=== PATIENT | male | born 1930 | race African-American/Black ===

== ENCOUNTER 2016-10-23 21:23 | Inpatient (IN) | payer OTHER ==
[~2016-10-23] VITALS: Ht 175.3 cm; Wt 62.8 kg
--- NOTE | ~2016-10-23 | EKG ---
[address] [place] [address] ELECTROCARDIOGRAM REPORT Name: KIMBERLYN GUILLEN Room #: 202-P ADM IN M.R.#: [id number] Admission: 10/23/16 Attend Phys: Stuart Kelley MD Discharge: Date of : 34 Report #: [id number] THIS REPORT FOR: //name// [facility] ED Test Date: 2016-10-23 Test Time: 22:35:36 Pat Name: KIMBERLYN GUILLEN Department: Room: 202 Gender: M Early Childhood Worker: BRANDI : 1930 Requested By: Sulaiman Balderas Order Number: [id number] MD: Petros Guerrero Measurements Intervals [place] Rate: 59 P: 72 ND: 234 QRS: -55 QRSD: 168 T: 214 QT: 457 QTc: 453 Interpretive Statements Sinus rhythm Prolonged ND interval Left bundle branch block Compared to ECG 10/22/2008 20:20:59 No significant change was found Electronically Signed On 10-24-2016 8:55:45 CDT by Petros Guerrero [email or web address] <ELECTRONICALLY SIGNED> By: Petros Guerrero MD, [facility] 10/24/16 0855 34 34 Petros Guerrero MD, [facility] /EPI
--- NOTE | ~2016-10-23 | 2DMMODE ---
[facility] [address] [place] [address] 2 D/M-MODE ECHOCARDIOGRAM Name: NEELAM GUILLENNDELL Room #: 202-P [facility] IN .R.#: [id number] Admission: 10/23/16 Attend Phys: Stuart Kelley, Discharge: Date of : 32 Date of Service: 10/24/16 1110 Report #: [id number] THIS REPORT FOR: //name// APPROVED REPORT Study performed: 10/24/2016 09:58:56 EXAM: Comprehensive 2D, Doppler, and color-flow Echocardiogram Patient Location: Bedside Room #: 202 Other Information Study Quality: Good Indications CVA/TIA CAD Hypertension/HDD Echo Enhancing Agent Indication: Rule out Shunt Agent(s) / Amount(s) Used: Agitated Saline 7 cc 2D Dimensions RVDd: 40.64 mm LVEF(%): 54.11 (>50%) IVSd: 10.64 (7-11mm) LVOT Diam: 21.94 (18-24mm) LVDd: 42.78 mm PWd: 11.23 (7-11mm) Ascending Ao: 34.14 (22-36mm) LVDs: 30.92 (25-40mm) Aortic Root: 30.39 mm IVC: 18.00 mm Molina's LVEF: 54.11 % Volumes Left Atrial Volume (Systole) Single Plane 4CH: 26.14 mL Single Plane 2CH: 40.92 mL LA ESV Index: 25.00 mL/m2 Aortic Valve AoV Peak Balta.: 1.17 m/s AO Peak Gr.: 5.50 mmHg LVOT Max P.02 mmHg LVOT Max V: 0.87 m/s SULAIMAN Vmax: 2.80 cm2 Mitral Valve [facility] [address] [address] 2 D/M-MODE ECHOCARDIOGRAM Name: MINDYKIMBERLYN Room #: 202-P [facility] IN M.R.#: [id number] Admission: 10/23/16 Attend Phys: Stuart Kelley, Discharge: Date of : 34 Date of Service: 10/24/16 1110 Report #: [id number] E/A Ratio: 0.7 MV Decel. Time: 189.86 ms MV E Max Balta.: 0.71 m/s MV A Balta.: 0.97 m/s MV PHT: 55.06 ms IVRT: 203.00 ms Pulmonary Valve PV Peak Balta.: 0.64 m/s PV Peak Gr.: 1.66 mmHg Pulmonary Vein P Vein S: 0.45 m/s P Vein A: 0.22 m/s P Vein D: 0.26 m/s P Vein A Dur.: 101.5 msec P Vein S/D Ratio: 1.73 Tricuspid Valve TR Peak Balta.: 2.11 m/s RAP Estimate: 10.00 mmHg TR Peak Gr.: 17.76 mmHg PA Pressure: 28.00 mmHg Left Ventricle The left ventricle is normal size. There is normal LV segmental wall motion. There is normal left ventricular wall thickness. The left ventricular systolic function is normal. LVEF is 55-60%. Grade I - abnormal relaxation pattern. Right Ventricle The right ventricle is normal size. The right ventricular systolic function is normal. Atria The left atrium size is normal. Tiny amount of shunting on bubble injection consistent with PFO The right atrium size is normal. Aortic Valve Aortic valve is calcified. No aortic regurgitation is present. There is no aortic valvular stenosis. Mitral Valve The mitral valve sclerosis No mitral regurgitation. No evidence of mitral valve stenosis. Tricuspid Valve The tricuspid valve is normal in structure. There is trace tricuspid regurgitation. The right atrial pressure is estimated at 10 mmHg. [facility] [address] [place] [address] 2 D/M-MODE ECHOCARDIOGRAM Name: KIMBERLYN GUILLEN Room #: 202-P ADM IN M.R.#: [id number] Admission: 10/23/16 Attend Phys: Stuart Kelley, Discharge: Date of : 34 Date of Service: 10/24/16 1110 Report #: [id number] There is no pulmonary hypertension. Pulmonic Valve The pulmonary valve is normal in structure. There is no pulmonic valvular regurgitation. Great Vessels The aortic root is normal in size. IVC is normal in size and collapses <50% with inspiration. Pericardium There is no pericardial effusion. <Conclusion> The left ventricular systolic function is normal. There is normal LV segmental wall motion. LVEF is 55-60%. Grade I diastolic dysfunction Aortic valve is calcified. There is no aortic valvular stenosis or insufficiency The mitral valve sclerosis No mitral regurgitation. Pulmonary artery pressure of 25mmHg. Tiny amount of right to left shunting on bubble injection consistent with patent foramen ovale. There is no pericardial effusion. <ELECTRONICALLY SIGNED> By: Petros Guerrero MD, FACC 10/24/16 1110 1110 1110 Petros Guerrero MD, FACC /INF
--- NOTE | ~2016-10-23 | H ---
[facility] [place] [address] HISTORY AND PHYSICAL Name: KIMBERLYN GUILLEN Room #: 202-P ADM IN M.R.#: [id number] Admission: 10/23/16 Attend Phys: Stuart Kelley MD Discharge: Date of : 32 Report #: [id number] THIS REPORT FOR: //name// CC: Stuart Kelley DATE OF SERVICE: 10/24/2016 CHIEF COMPLAINT: Right sided weakness. HISTORY OF PRESENT ILLNESS: The patient is an 85-year-old -[place]in[place] male, well known to me, who was brought to the Emergency Department by the daughter, who reported that he complained of some symptoms of right sided weakness. The patient states he had had a problem in the past that resolved. He states he contacted them and said he could not use his right arm very well. He does have dementia as well. PAST MEDICAL HISTORY: Significant for: 1. Dementia. 2. Hypertension. 3. Coronary artery disease. 4. Reflux. 5. BPH. MEDICATIONS: Include just lisinopril 20 mg a day and Aricept 10 mg a day. ALLERGIES: No known drug allergies. SOCIAL HISTORY: Nonsmoker and nondrinker. No recreational drugs. He lives independently in an apartment. REVIEW OF SYSTEMS: CONSTITUTIONAL: He denies fevers or chills. HEENT: No headaches or visual changes. CHEST: He denies chest pain tightness in the chest, shortness of breath, cough or sputum production. GASTROINTESTINAL: No nausea, vomiting, diarrhea, or constipation. GENITOURINARY: No burning or frequency. EXTREMITIES: The right sided weakness as above. No swelling or stiffness. SKIN: No rashes or wounds. NEUROLOGIC: Per above. PHYSICAL EXAMINATION: VITAL SIGNS: Blood pressure was 157/93, his pulse was 65, respiratory rate 17. He is afebrile. GENERAL: The patient is awake and alert, in no acute distress, at the time of my evaluation. He is slightly confused this morning, but is in no distress. [address] [address] HISTORY AND PHYSICAL Name: KIMBERLYN GUILLEN Room #: 202-[facility] IN M.R.#: [id number] Admission: 10/23/16 Attend Phys: Stuart Kelley MD Discharge: Date of : 32 Report #: [id number] HEENT: His mucous membranes are moist. NECK: Supple, without adenopathy, thyromegaly, or bruits. CHEST: Clear to auscultation bilaterally. CARDIOVASCULAR: Irregular rhythm without murmur. ABDOMEN: Soft. No masses. No hepatosplenomegaly. Bowel sounds are active. EXTREMITIES: Show no clubbing, cyanosis, or edema. NEUROLOGICAL: He has poor memory. His motor is grossly equal bilaterally in upper and lower extremities. His sensory is equal bilaterally. His cranial nerves are grossly intact. DIAGNOSTIC DATA: EKG showed sinus rhythm at the rate of 59. No acute ST segment changes. LABORATORY DATA: Sodium 141, potassium 3.6, chloride 106, bicarbonate 27, BUN 25, creatinine 1.3, glucose 90, magnesium 2.1, AST 49, ALT 40, CPK is 1076, MB is 8.1. Troponin is less than 0.04. C-reactive protein is 2. BNP is 439. TSH 2.23, INR 1.1. WBC 3.5, hemoglobin 14.0, hematocrit 48.9, platelet count 144, segs 57, lymphs 28. Chest x-ray shows no acute process. CT head shows atrophy, but no acute process. There are some changes in the anterior left thalamic area with some possible acute infarct area. It is hard to determine on the CT. ASSESSMENT AND PLAN: 1. Acute transient ischemic attack with of symptoms. We will start aspirin. We will get MRI head with and without contrast. Echocardiogram and carotid Dopplers. Consult PT and OT. 2. Hypertension. Currently, stable. Continue home meds. 3. Dementia. Resume Aricept. 4. Elevated CPK likely on the basis of rhabdomyolysis. He may have been on the ground for some time due to the weakness, it is not clear. We will give IV fluids, monitor the CPK, and monitor his creatinine. He will likely need placement in a long term facility for debility from his weakness. By: [id number] Stuart Kelley MD /nt
--- NOTE | ~2016-10-23 | HC ---
[facility] [place] [address] CONSULTATION Name: KIMBERLYN GUILLEN Room #: 202-P [facility] IN M.R.#: [id number] Admission: 10/23/16 Attend Phys: Stuart Kelley MD Discharge: 10/25/16 Date of : 32 Report #: [id number] THIS REPORT FOR: //name// CC: Stuart Kelley HISTORY OF PRESENT ILLNESS: The patient is an 85-year-old -[place] male with a history of dementia who nevertheless has been living in his own apartment with his daughter closely involved. He had difficulty with inability to walk and was admitted with right-sided weakness. MRI confirmed left basal ganglia infarcts. He also had an elevated CPK secondary to rhabdomyolysis, likely due to apparently lying on the floor for a while. Carotid Dopplers were negative for any significant stenosis. We have been consulted regarding rehab therapy issues. PAST MEDICAL HISTORY: Includes the noted dementia, history of hypertension, coronary artery disease, reflux, BPH. MEDICATIONS: Please see the full medication listing. ALLERGIES: No known drug allergies. SOCIAL HISTORY: Lives in his own independent apartment by himself. He has premorbidly been ambulatory without gait aids. Daughter helps with cooking, cleaning and laundry. He actually drives to the grocery store and his daughter usually will meet him there. The staff at the grocery store also will help him as far as his purchases. REVIEW OF SYSTEMS: Did not offer any current complaints of chest pain, shortness of breath, abdominal discomfort. PHYSICAL EXAMINATION: GENERAL: He is a pleasant 85-year-old -[place] male in no obvious distress. VITAL SIGNS: Last recorded temperature 36.2, pulse 59, respirations 16, blood pressure 173/88. NEUROLOGIC: The patient is alert, pleasant, slender -[place] male in no obvious distress. He can follow basic 1 step commands without difficulty. He is cooperative and pleasant. Facies appeared to be symmetric. EOMs appeared to be intact. EXTREMITIES: He does have some weakness of that right upper and right lower extremity a grade 3+/5. DTRs are trace to 1. Left upper extremity and left lower extremity are more of a grade 4. Tone appeared to be intact, a grade 1 without clonus. Functionally, he is min assist with sit to stand. Gait was 3 feet mod assist. Lower extremity dressing was min assist with decreased balance. The patient indicates to therapist that he does not want to use a cane or a walker. [address] [address] CONSULTATION Name: KIMBERLYN GUILLEN Room #: 202-P DIS IN M.R.#: [id number] Admission: 10/23/16 Attend Phys: Stuart Kelley MD Discharge: 10/25/16 Date of : 32 Report #: [id number] ASSESSMENT: An 85-year-old -[place] male with the following problem lists: 1. Left basal ganglia infarcts. 2. Right-sided weakness. 3. Functional mobility and ADL deficits. 4. Premorbid dementia, nevertheless living in the community with close involvement with his daughter. 5. History of rhabdomyolysis. 6. Hypertension. 7. Coronary artery disease. PLAN: The patient is a candidate for an acute in-hospital inpatient rehabilitation stay. From a preadmission screening perspective: 1. Prior level of function is well delineated above. 2. Expect level of improvement would be for the patient to improve as far as his gait, mobility and ADLs, so that he can achieve his prior functional level to be able to return back to the home setting with likely initial increased assistance by his daughter. Would anticipate length of stay of probably at least 10 days to 2 weeks. 3. Evaluation of the patient's risk for clinical complications. He does have multiple medical comorbidities as noted above. 4. Condition that cause the need for rehabilitation would be the acute strokes. 5. Treatments needed would include PT and OT and would have speech therapy involved as well, 1 hour per day each five days a week throughout the duration of the acute inpatient rehabilitation stay. If he is approaching his prior cognitive level, we may be able to decrease the speech and increase the PT and OT. 6. Anticipated discharge destination is back to the home setting above. 7. Anticipated post-discharge treatments would include likely some home healthcare therapies. By: [id number] Vicente Poe MD /nt
[2016-10-23 21:24] VITALS: BP 157/93
[2016-10-23 22:28] LABS: BASOPHILS 1.4 % (0.0-2.0); EOSINOPHILS 2.9 % (0.0-3.0); HEMATOCRIT 40.9 % (42.0-52.0); LYMPHOCYTES 28.8 % (24.0-44.0); MCH 29.7 pg (26.0-34.0); MCHC 34.2 g/dL (28.0-37.0); MCV 86.8 fL (80.0-100.0); PLATELET COUNT 144 thou/uL (150-400); POLYS 57.9 % (36.0-66.0); RBC 4.71 mil/uL (4.50-6.00); RDW 13.6 % (10.5-14.5); WBC 3.5 thou/uL (4.0-11.0)
[2016-10-23 22:36] LABS: MANUAL DIFF NO
[2016-10-23] MEDS ORDERED: ARICEPT 5 MG TAB5 MG PO (22:41)
[2016-10-23] MEDS ORDERED: PRINIVIL20 MG PO (22:41)
[2016-10-23 22:42] LABS: ANION GAP 8 mmol/L (7-16); BUN 25 mg/dL (7-18); CALCIUM 9.2 mg/dL (8.5-10.1); CHLORIDE 106 mmol/L (98-107); CO2 27 mmol/L (21-32); CREATININE 1.3 mg/dL (0.7-1.3); GLUCOSE 90 mg/dL (74-106); POTASSIUM 3.6 mmol/L (3.5-5.1); SODIUM 141 mmol/L (136-145)
[2016-10-23 22:46] LABS: APTT 25.9 Seconds (24.5-32.8); INR 1.1; PROTIME 11.4 Seconds (9.3-11.4)
[2016-10-23 23:14] LABS: ALBUMIN 4.1 g/dL (3.4-5.0); ALKALINE PHOSPHATASE 71 U/L (46-116); CK-MB MASS 8.1 ng/mL (<0.5-3.6); MAGNESIUM 2.1 mg/dL (1.8-2.4); NT-PRO BRAIN NAT PEPTIDE 439 pg/mL (<300); SGOT 49 U/L (15-37); SGPT 40 U/L (30-65); TOTAL BILIRUBIN 0.8 mg/dL (<0.1-1.0); TOTAL PROTEIN 7.8 g/dL (6.4-8.2); TROPONIN-I < 0.04 ng/mL (<0.04-0.07)
[2016-10-24 03:20] VITALS: BP 130/85
[2016-10-24 05:05] VITALS: BP 138/88
[2016-10-24 08:25] VITALS: BP 169/83
[2016-10-24 11:39] LABS: CHOLESTEROL 181 mg/dL (<200); HDL CHOLESTEROL 73 mg/dL (>40); LDL CHOLESTEROL 100 mg/dL (<100); TC:HDL 2.5 Ratio (Not establshd); TRIGLYCERIDE 44 mg/dL (<150); VLDL 9 mg/dL (<40)
[2016-10-24 11:40] VITALS: BP 183/95
[2016-10-24 16:20] VITALS: BP 181/100
[2016-10-24 19:17] VITALS: BP 144/79
[2016-10-25 03:36] LABS: CALCIUM 9.2 mg/dL (8.5-10.1); CREATININE 1.2 mg/dL (0.7-1.3)
[2016-10-25 04:40] VITALS: BP 159/99
[2016-10-25 07:23] VITALS: BP 152/89
[2016-10-25 11:26] VITALS: BP 173/88
[2016-10-25] MEDS ORDERED: ASPIRIN EC325 M1 PO (15:16)
[2016-10-25] MEDS ORDERED: ATORVASTATIN CA10 MG PO (15:16)
[2016-10-25] MEDS ORDERED: ACETAMINOPHEN325 M1 PO (15:17)
== END 2016-10-25 15:48 | DRG 65 ==
LOC: ER 21:23 → 2N 23:33 → EROBS 23:33 → 2N 10-24 03:23
PROVIDERS: Emergency Medicine; Family Medicine
DX: I63.9 Cerebral infarction, unspecified (principal); M62.82 Rhabdomyolysis; E44.0 Moderate protein-calorie malnutrition; I25.10 Atherosclerotic heart disease of native coronary artery without angina pectoris; K21.9 Gastro-esophageal reflux disease without esophagitis; F03.90 Unspecified dementia, unspecified severity, without behavioral disturbance, psychotic disturbance, mood disturbance, and anxiety; N40.0 Benign prostatic hyperplasia without lower urinary tract symptoms; Z68.20 Body mass index [BMI] 20.0-20.9, adult; I12.9 Hypertensive chronic kidney disease with stage 1 through stage 4 chronic kidney disease, or unspecified chronic kidney disease; N18.9 Chronic kidney disease, unspecified
CPT/HCPCS: 10081

== ENCOUNTER 2016-10-25 13:23 | Inpatient (IN) | payer OTHER ==
[~2016-10-25] VITALS: Ht 180.3 cm; Wt 55.7 kg
--- NOTE | ~2016-10-25 | H ---
[facility] [place] [address] HISTORY AND PHYSICAL Name: KIMBERLYN GUILLEN Room #: 513-P ADM IN M.R.#: [id number] Admission: 10/25/16 Attend Phys: Vicente Poe MD Discharge: Date of : 32 Report #: [id number] THIS REPORT FOR: //name// CC: Vicente Kelley DATE OF SERVICE: 10/25/2016 HISTORY OF PRESENT ILLNESS: The patient is an 85-year-old male who has a history of dementia, who nevertheless has been living in his own apartment with his daughter closely involved. He has actually been doing some limited driving and his daughter will typically meet him at the grocery store. He has been premorbidly independent with ambulation without gait aids. He had the onset of difficulty with inability to walk and was admitted to [facility] with right-sided weakness. MRI confirmed left basal ganglia infarcts. He also had an elevated CPK secondary to rhabdomyolysis likely due to apparently lying on the floor for a while. Carotid Dopplers were negative for any significant stenosis. The patient was felt to be ready and has been admitted for acute in-hospital inpatient rehabilitation. PAST MEDICAL HISTORY: Includes the noted dementia, history of hypertension, coronary artery disease, reflux, BPH. MEDICATIONS: Please see the full medication listing. ALLERGIES: No known drug allergies. SOCIAL HISTORY: Lives in his own independent apartment by himself. He has premorbidly been ambulatory without gait aids. Daughter helps with cooking, cleaning and laundry. As noted above, he actually drives to the grocery store and his daughter usually meets him or the staff at the grocery store have helped him as far as his purchases. REVIEW OF SYSTEMS: No current complaints of chest pain, shortness of breath, abdominal discomfort. PHYSICAL EXAMINATION: GENERAL: An 85-year-old male in no obvious distress. He is right handed. VITAL SIGNS: His temperature is 97.3, pulse 61, respirations 20, blood pressure 192/76. HEENT: Appeared to be benign. Facies are symmetric. CHEST: Sounded clear to auscultation. CARDIAC: Regular rate and rhythm. ABDOMEN: Bowel sounds positive, nontender. GENITOURINARY AND RECTAL: Deferred. [facility] [address] [place] [address] HISTORY AND PHYSICAL Name: KIMBERLYN GUILLEN Room #: 513-P [facility] IN M.R.#: [id number] Admission: 10/25/16 Attend Phys: Vicente Poe MD Discharge: Date of : 32 Report #: [id number] NEUROLOGIC: He can follow basic 1 step commands without difficulty. Facies appeared to be symmetric. EXTREMITIES: He does have some weakness of that right upper and right lower extremity a grade 3+ to 4-/5. DTRs are trace to 1. Left upper extremity and left lower extremity are more of a grade 4. Tone appeared to be intact, grade 1 without clonus. Functionally, he has been standby assistance with bed mobility and min assist with sit to stand. He has been mod assist for short distance ambulation. ASSESSMENT: An 85-year-old male with the following problem list: 1. Dominant left basal ganglia infarct. 2. Right-sided weakness with hemiparesis. 3. Functional mobility and ADL deficits. 4. Premorbid dementia, nevertheless living in the community with close involvement with his daughter. 5. History of rhabdomyolysis. 6. Hypertension. 7. Coronary artery disease. PLAN: The patient is admitted for acute in-hospital inpatient rehabilitation. From a postadmission physician evaluation perspective, there are no relevant changes since the preadmission screening. Please see the above review of prior and current medical and functional conditions and comorbidities. Please see the patient's previous and current functional status. As far as risk of complications, the patient has the above noted comorbidities. The initial plan of care will be involving the interdisciplinary acute inpatient rehabilitation program with the goal of returning back to the home setting. Measurable functional goals would be to try to achieve independence with gait and mobility at least at a walker level if the patient will allow that. He does not like to utilize walkers. The goal would be to achieve a functional level that he could return back to the home setting with daughter involvement. Prognosis is reasonably good and estimated length of stay is likely 2-3 weeks pending progress. Potential barriers would include his above noted medical comorbidities and his decreased functional status. The patient meets diagnostic criteria for an acute in-hospital inpatient rehabilitation stay. He meets medical necessity criteria and will be undergoing the interdisciplinary acute stroke rehabilitation program. He does have the appropriate tolerance for therapies at the acute rehab level and has appropriate discharge goals back to the home setting. <ELECTRONICALLY SIGNED> By: Vicente Poe MD 10/31/16 1518 0827 1023 Vicente Poe MD /nt
--- NOTE | ~2016-10-25 | HC ---
[facility] [place] [address] CONSULTATION Name: KIMBERLYN GUILLEN Room #: 513-P ADM IN M.R.#: [id number] Admission: 10/25/16 Attend Phys: Vicente Poe MD Discharge: Date of : 32 Report #: [id number] THIS REPORT FOR: //name// CC: Vicente Kelley DATE OF SERVICE: 10/28/2016 NEUROBEHAVIORAL STATUS EXAMINATION REPORT ATTENDING PHYSICIAN: Vicente Poe M.D. CONSTRUCTION SAFETY CONSULTANT: Stuart Rojas, PhD. DATE OF CONSULTATION: 10/28/2016. CLINICAL PRESENTATION: The patient is an 85-year-old male admitted to the [facility] for a comprehensive inpatient rehabilitation program to improve functional mobility, activities of daily living and self-care along with mental status secondary to deficits from a left basal ganglia infarction. His diagnoses include right-sided weakness with hemiparesis, functional mobility and ADL deficits, premorbid deficits with community living, history of rhabdomyolysis, hypertension, and coronary artery disease. A complete description of his medical condition and history along with medications can be found in his medical record. Neuropsychological consultation was requested to provide assistance in the assessment of cognitive and emotional status and to provide recommendations and services. Prior to this most recent medical event, he is reported to have been living alone in an apartment. He has a history of Alzheimer disease. He is reported to have been independent with activities of daily living. The patient reports that he only has 1 child; however, medical records indicate that he has 2 children who live outside the area. His daughter, Suzy is most involved in his care and has been providing assistance to help him maintain community dwelling. The patient reports being a high school graduate. He indicates he had worked as a [employer] prior to his senior care. He reports having had 1 brother and 3 sisters. TECHNIQUES UTILIZED: Clinical interview, review of medical records, staff consultation and behavioral observation, mini mental status exam 2 standard version and clock drawing. EXAMINATION FINDINGS: The patient was alert and cooperative with the assessment. He was unable to describe the reason for his hospitalization. He also could not describe any current problems or symptoms that he was having. Severe impairment in verbal fluency was noted during unstructured expressive [facility] [address] [place] [address] CONSULTATION Name: KIMBERLYN GUILLEN Room #: 513-P [facility] IN .R.#: [id number] Admission: 10/25/16 Attend Phys: Vicente Poe MD Discharge: Date of : 32 Report #: [id number] speech. He denied symptoms of cognitive impairment. He does not report problems with memory, word finding, concentration, sleep, appetite, anxiety or depression. The patient has decreased insight into his symptoms. He also has less awareness to cognitive and behavioral deficits. His performance on the MMSE 2 standard version is extremely low with a raw score of 7 of 16. He was 3/3 for initial registration, 2/5 for orientation to time and 2/[address]. He was 0/3 for immediate recall of 3 items after a brief time delay and distraction. His performance on serial sevens was 0/5. The patient was 2/2 for naming. He could repeat a single statement. He was also 3/3 for auditory comprehension. He could read and follow single command. The patient was unable to write a sentence, and he could not copy a simple geometric design. The patient shows evidence of perseveration and also apraxia during the assessment. Inability to draw a clock, place the numbers suggest apraxia as well as an impairment in semantic knowledge and memory. 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 RECOMMENDATIONS: The patient will require 24-hour care that includes assistance in the management of medication and nutrition. The patient should not return to an independent living, and driving should be discontinued. Family education in regard to the severity of his neurocognitive deficits is indicated. A followup neuropsychological assessment in approximately 2-3 months may be of benefit to clarify the severity of deficits associated with his dementia. Thank you very much for allowing me to provide the consultation on this patient. <ELECTRONICALLY SIGNED> By: Stuart Rojas, PhD 11/04/16 1530 1557 16 Stuart Rojas, PhD /nt
--- NOTE | ~2016-10-25 | PLAN ---
[facility] [place] [address] REHAB UNIT PLAN OF CARE Name: KIMBERLYN GUILLEN Room #: 513-P ADM IN M.R.#: [id number] Admission: 10/25/16 Attend Phys: Vicente Poe MD Discharge: Date of : 34 Report #: [id number] THIS REPORT FOR: //name// CC: Vicente Kelley DATE OF SERVICE: 10/28/2016 Last recorded temperature 36.4, pulse 69, respirations 18, blood pressure 144/84. Transfers are standby assistance. He has been ambulating 250 feet contact guard with a front-wheeled walker. Lower extremity dressing is contact guard assistance. He has moderate to severe comprehensive deficits. ASSESSMENT: 1. Dominant left basal ganglia infarct. 2. Right-sided weakness with hemiparesis. 3. Functional mobility and ADL deficits. 4. Premorbid dementia, nevertheless living in the community with close involvement with his daughter. 5. History of rhabdomyolysis. 6. Hypertension. 7. Coronary artery disease. PLAN: The overall plan of care is based on the preadmission screen, post-admission physician evaluation and information garnered from therapy assessments. 1. Estimated length of stay should be fairly short, probably 7-10 days, maybe 14 days if warranted. 2. Medical prognosis is reasonably good. 3. Anticipated interventions includes the interdisciplinary acute inpatient rehabilitation program with PT, OT and speech, rehabilitation nursing assisting regarding medication management, skin care prophylaxis, bowel and bladder issues and nursing education. Case management is involved as well as the philatelic consultant physicians. 4. Anticipated functional outcomes would be for the patient to become modified independent with transfers, mobility, ADLs and to try to achieve the prior functional level he was at premorbidly. 5. Discharge destination would be back to the home setting with his daughter, most likely more closely involved than before. 6. Expected therapy by discipline includes PT, OT and speech 1 hour per day each five days a week throughout the duration of the acute inpatient rehabilitation stay. <ELECTRONICALLY SIGNED> By: Vicente Poe MD 10/31/16 1518 [id number] [id number] Vicente Poe MD /nt
[~2016-10-25 13:23] MED LIST: ARICEPT 5 MG TAB5 MG PO; PRINIVIL20 MG PO
[2016-10-25] MEDS ORDERED: ASPIRIN EC325 M1 PO (15:16)
[2016-10-25] MEDS ORDERED: ATORVASTATIN CA10 MG PO (15:16)
[2016-10-25] MEDS ORDERED: ACETAMINOPHEN325 M1 PO (15:17)
[2016-10-25 15:30] VITALS: BP 145/97
[2016-10-25 16:58] VITALS: BP 145/97
[2016-10-26 05:24] LABS: HEMATOCRIT 40.9 % (42.0-52.0); MCH 29.6 pg (26.0-34.0); MCHC 34.3 g/dL (28.0-37.0); MCV 86.4 fL (80.0-100.0); RBC 4.73 mil/uL (4.50-6.00); WBC 3.3 thou/uL (4.0-11.0)
[2016-10-26 05:28] VITALS: BP 144/94
[2016-10-26 05:35] LABS: CALCIUM 8.9 mg/dL (8.5-10.1); POTASSIUM 3.6 mmol/L (3.5-5.1)
[2016-10-26 15:12] VITALS: BP 155/95
[2016-10-27 05:06] VITALS: BP 162/87
[2016-10-27 19:00] VITALS: BP 193/109
[2016-10-28 06:14] VITALS: BP 148/92
[2016-10-28 10:51] VITALS: BP 144/84
[2016-10-28 16:00] VITALS: BP 160/85
[2016-10-29 03:16] VITALS: BP 151/84
[2016-10-29 08:45] VITALS: BP 124/78
[2016-10-29 15:57] VITALS: BP 133/78
[2016-10-30 04:50] VITALS: BP 125/75
[2016-10-30 16:00] VITALS: BP 124/77
[2016-10-31 05:27] VITALS: BP 115/56
[2016-10-31 16:00] VITALS: BP 158/65
[2016-11-01 06:02] VITALS: BP 126/83
[2016-11-01 15:58] VITALS: BP 134/67
[2016-11-02 06:31] VITALS: BP 130/62
[2016-11-02 15:20] VITALS: BP 151/83
[2016-11-03 04:36] VITALS: BP 148/76
[2016-11-03 08:20] VITALS: BP 138/87
[2016-11-03 15:56] VITALS: BP 116/76
[2016-11-04 05:10] VITALS: BP 138/73
[2016-11-04 09:03] VITALS: BP 133/70
[2016-11-04 16:00] VITALS: BP 111/70
[2016-11-05 04:29] VITALS: BP 119/75
[2016-11-05 16:10] VITALS: BP 126/76
[2016-11-06 04:28] VITALS: BP 130/71
[2016-11-06 11:16] VITALS: BP 150/76
== END 2016-11-06 16:15 | DRG 65 ==
PROVIDERS: Physical Medicine & Rehabilitation
DX: I63.9 Cerebral infarction, unspecified (principal); G81.91 Hemiplegia, unspecified affecting right dominant side; I10 Essential (primary) hypertension; I25.10 Atherosclerotic heart disease of native coronary artery without angina pectoris; F01.50 Vascular dementia, unspecified severity, without behavioral disturbance, psychotic disturbance, mood disturbance, and anxiety; G30.9 Alzheimer's disease, unspecified; F02.80 Dementia in other diseases classified elsewhere, unspecified severity, without behavioral disturbance, psychotic disturbance, mood disturbance, and anxiety; N40.0 Benign prostatic hyperplasia without lower urinary tract symptoms; K21.9 Gastro-esophageal reflux disease without esophagitis
CPT/HCPCS: 10112

== ENCOUNTER → 2018-11-06 | Outpatient (CLI) | payer OTHER ==
[~2018-11-06] MED LIST changes: +ACETAMINOPHEN325 M1 PO; +ASPIRIN EC325 M1 PO; +ATORVASTATIN CA10 MG PO
== END ==
LOC: HYPER 10-28 06:49
DX: L97.821 Non-pressure chronic ulcer of other part of left lower leg limited to breakdown of skin (principal); L97.811 Non-pressure chronic ulcer of other part of right lower leg limited to breakdown of skin; L89.623 Pressure ulcer of left heel, stage 3; L97.521 Non-pressure chronic ulcer of other part of left foot limited to breakdown of skin; I69.351 Hemiplegia and hemiparesis following cerebral infarction affecting right dominant side; I10 Essential (primary) hypertension; R13.12 Dysphagia, oropharyngeal phase; R63.4 Abnormal weight loss; R41.841 Cognitive communication deficit; G30.8 Other Alzheimer's disease; Z91.81 History of falling

== ENCOUNTER → 2018-12-23 | Outpatient (CLI) | payer OTHER ==
[~2018-12-23] VITALS: Ht 177.8 cm; Wt 63.5 kg
[~2018-12-23] MED LIST changes: +APAP650 PO; +COLACE100 MG PO; +DEPAKOTE SPRIN125 MG PO; +FUROSEMIDE 20 M20 M1 PO; +GENTAMICIN 0.1%15 G2 TOP; +KLOR-CON 1010 MEQ PO; +VITAMINC500 PO
[2018-12-23 08:39] VITALS: BP 129/83
[2018-12-23 08:49] LABS: HEMATOCRIT 35.5 % (42.0-52.0); HEMOGLOBIN 11.5 gm/dL (14.0-18.0); MCH 27.1 pg (26.0-34.0); MCHC 32.5 g/dL (28.0-37.0); MCV 83.4 fL (80.0-100.0); RBC 4.25 mil/uL (4.50-6.00); RDW 18.1 % (10.5-14.5); WBC 3.8 thou/uL (4.0-11.0)
[2018-12-23 08:55] LABS: CALCIUM 9.7 mg/dL (8.5-10.1); CREATININE 1.1 mg/dL (0.7-1.3); POTASSIUM 4.2 mmol/L (3.5-5.1)
[2018-12-23 13:27] VITALS: BP 101/71
[2018-12-23 13:46] VITALS: BP 96/65
== END | disposition home or self-care (01) ==
LOC: SPEC 06:14
PROVIDERS: Nuclear Medicine Nuclear Cardiology
DX: I70.248 Atherosclerosis of native arteries of left leg with ulceration of other part of lower leg (principal); I70.238 Atherosclerosis of native arteries of right leg with ulceration of other part of lower leg; I70.1 Atherosclerosis of renal artery; L97.829 Non-pressure chronic ulcer of other part of left lower leg with unspecified severity; I10 Essential (primary) hypertension; I25.10 Atherosclerotic heart disease of native coronary artery without angina pectoris; K21.9 Gastro-esophageal reflux disease without esophagitis; E78.5 Hyperlipidemia, unspecified; G30.9 Alzheimer's disease, unspecified; F02.80 Dementia in other diseases classified elsewhere, unspecified severity, without behavioral disturbance, psychotic disturbance, mood disturbance, and anxiety; Z86.73 Personal history of transient ischemic attack (TIA), and cerebral infarction without residual deficits; Z98.890 Other specified postprocedural states; Z79.899 Other long term (current) drug therapy

== ENCOUNTER 2019-01-29 11:48 | Inpatient (IN) | payer OTHER ==
[~2019-01-29] VITALS: Ht 180.3 cm; Wt 64.6 kg
[2019-01-29 11:51] VITALS: BP 136/84
[2019-01-29 13:15] LABS: ABSOLUTE NEUTROPHILS 6.9 thou/uL (1.4-8.2); BASOPHILS 0.3 % (0.0-2.0); EOSINOPHILS 0.9 % (0.0-3.0); HEMATOCRIT 34.5 % (42.0-52.0); HEMOGLOBIN 11.1 gm/dL (14.0-18.0); LYMPHOCYTES 10.2 % (24.0-44.0); MCH 27.5 pg (26.0-34.0); MCHC 32.2 g/dL (28.0-37.0); MCV 85.5 fL (80.0-100.0); MONOCYTES 9.7 % (1.0-8.0); PLATELET COUNT 250 thou/uL (150-400); POLYS 78.9 % (36.0-66.0); RBC 4.03 mil/uL (4.50-6.00); RDW 18.9 % (10.5-14.5); WBC 8.8 thou/uL (4.0-11.0)
[2019-01-29 13:21] LABS: CALCIUM 10.1 mg/dL (8.5-10.1); CREATININE 1.4 mg/dL (0.7-1.3); POTASSIUM 4.3 mmol/L (3.5-5.1)
[2019-01-29 13:32] LABS: ANISOCYTOSIS 2+; PLATELET ESTIMATE NORMAL
[2019-01-29 17:52] VITALS: BP 136/89
[2019-01-29 18:37] VITALS: BP 149/90
[2019-01-29 19:07] VITALS: BP 147/87
--- NOTE | 2019-01-29 20:40 | NUR ---
Admitted from ER due to R 4th toe wound at 1830. Pt disoriented to name, place, situation, and date. Incontinent of B/B. Assisted in ADLs. Admission education, history and assessment done- unable to obtain some information. Wound photos to be taken by maintenance supervisor 2nd shift nurse- informed. Vital signs taken. With SL at L AC- resumed IVF ordered from ER, ordered from pharmacy loading dose of antibiotics which was not started at ER. Falls risk- falls bundle in place. Wound care consult, superintendent greens consult put in re: wound. Admission forms not signed- pt unable to sign- night staff informed. Pt with order of MRI to be done. To continue monitoring.
--- NOTE | 2019-01-30 03:59 | NUR ---
ASSUMED CARE AROUND 1900. ALERT AND AWAKE. CONFUSED AND RESTLESS. RIPPED OUT LAC IV. IV NOW REPLCED TO RFA. WOUND PICTURES TAKEN AND FILED. INITIAL TX GIVEN AT BEDSIDE. FREQUENT OBSERVATION GIVEN. CALLED [employer] INTERN FOR AND OBTAINED AN ORDER FOR PAIN MEDICATION. HYPOGLYCEMIA NOTED AND CORRECTED WITHOUT MEDICAL INTEERVENTION. NO S/S ACUTE DISTRESS NOTED OR REPORTED AT THIS TIME. WILL CONT TO MONITOR FOR ANY CHANGES IN CONDITION.
[2019-01-30 04:30] VITALS: BP 156/88
[2019-01-30 05:54] LABS: HEMATOCRIT 32.4 % (42.0-52.0); HEMOGLOBIN 10.5 gm/dL (14.0-18.0); MCH 27.7 pg (26.0-34.0); MCHC 32.6 g/dL (28.0-37.0); MCV 84.9 fL (80.0-100.0); RBC 3.81 mil/uL (4.50-6.00); RDW 18.8 % (10.5-14.5); WBC 6.3 thou/uL (4.0-11.0)
[2019-01-30 06:12] LABS: CALCIUM 9.2 mg/dL (8.5-10.1); CREATININE 1.2 mg/dL (0.7-1.3); POTASSIUM 4.1 mmol/L (3.5-5.1)
[2019-01-30 07:18] VITALS: BP 155/73
--- NOTE | 2019-01-30 11:05 | NUR ---
WOUND CARE CONSULT; ROUNDING TODAY WITH DR ESTEVAN ARRINGTON. WOUNDS BETWEEN THE TOES OF THE RIGHT FOOT. THE RIGHT 4TH TOE IS PURPLE. THE TOES ARE EXTREMLEY PAINFUL WHICH IS CONSISTANT WITH ARTERIAL WOUND ETIOLOGY. NON ODOROUS AT THIS TIME. DRAINAGE IS A SMALL AMOUNT AND LIGHT YELLOW. RECOMMEDNATION; 1-AQUACEL AG BETWEEN TOES DAILY/PRN 2-PAINT THE 4TH TOE WITH BETADINE DISCUSSED WITH RN AND PROVIDED SUPPLIES.
--- NOTE | 2019-01-30 14:26 | NUR ---
DISCHARGE PLANNING. PATIENT IS A [facility] RESIDENT AT [facility]. POST ACUTE RECOMMENDED AT DISCHARGE. CLINICAL INFORMATION FAXED TO [facility]. CALL PLACED TO [facility] TO NOTIFY OF PATIENT REFERRAL AND DISCHARGE NEEDS. FOLLOWING.
[2019-01-30 14:42] VITALS: BP 155/91
--- NOTE | 2019-01-30 14:42 | NUR ---
INITIAL ASSESSMENT: Received high risk nursing referral due to pt being admitted from a nursing facility. HERO reviewed chart and spoke with nursing. Pt was admitted from [facility] due to 4th toe wound. Pt to have MRI of right foot today. HERO spoke with pt's dtr, Amy, via phone. Introduced role of HERO. Pt is normally w/c bound at the nursing facilityl. Per Amy, pt is in the ad terminal makeup operator care unit. Plan is for pt to return to [facility] when medically stable. Awaiting MRI results to determine treatment plan. communications planner to fax clinical info to [facility] for review. HERO is following to assist as needed with discharge planning.
[2019-01-30 19:15] VITALS: BP 145/72
--- NOTE | 2019-01-30 19:56 | NUR ---
Assumed pt care this am, pt is very conlfused and incontinent of both bowel and bladder. Pt is total care and is a feeder, MRI of the foot was done. Blood Sugar on the low side informed MD montoyamged IV to D5. Janiya care done several times during the shift, pt tends to be impulsive towards shift change and would disrobe. No signs of distress have been noted. POC followed, fall precautions in place, transfered pt from 458 to 462 to be close to the station.
--- NOTE | 2019-01-31 03:43 | NUR ---
ASSUMED CARE OF PT AT 1900HRS. PT ALERT BUT ONLY ORIENTED TO SELF. FALL PRECAUTION IN PLACE. PT IS CONFUSED AND CAN BE IMPUSIVE. PT IS INCT AND WAS CLEANED SEVERAL TIMES THIS SHIFT. BED BATH PROVIDED. ABX TREATMENT CONTINUED. PT WAS ABLE TO GET COMFORTABLE AND SLEEP PART OF THE SHIFT. NO S/S OF ACUTE DISTRESS. WILL CONTINUE TO MONITOR.
[2019-01-31 05:42] LABS: CALCIUM 9.1 mg/dL (8.5-10.1); CREATININE 1.1 mg/dL (0.7-1.3); POTASSIUM 3.6 mmol/L (3.5-5.1)
[2019-01-31 14:59] VITALS: BP 146/88
--- NOTE | 2019-01-31 15:45 | NUR ---
IT IS ANTICIPATED THAT PT WILL BE HERE OVER THE WEEKEND. HE IS SCHEDULED TO HAVE AN ANGIOGRAM SUNDAY. CM TO FOLLOW INDICATED WITH DC PLANNING.
--- NOTE | 2019-01-31 20:18 | NUR ---
Assumed pt care this am, still confused but pleasant. Pt is a feeder, fluids encouraged fed small and frequent. POC followed, Stool sample sent for C-dif as per protocol. Consent signed for artetiogram w/ possible stenting on Sunday at 11, DPOA came to visit. Pt is incontinent of both bowel and bladder, pericare given. endoorsed to the night nurse.
[2019-01-31 21:09] VITALS: BP 141/60
--- NOTE | 2019-02-01 03:56 | NUR ---
ASSESSMENT COMPLETED. PT A&O TO SELF. PT RECIEVED 1 DOSE OF SEROQUEL WHICH HELPED FOR LIKE 3HRS. PT WAS SOMEWHAT RESTLESS FROM MIDNIGHT TO AROUND 0300, PARTICULARLY WHEN HE WAS INCONT. A CONDOM CATH WAS PLACED. PT WAS BLE TO EAT ALL OF HIS DINNER LAST NIGHT. BG AT HS WAS 136. FALL PREC IN PLACE. CALL TOVAR WITHIN REACH. WILL CONT TO MONITOR
[2019-02-01 07:51] VITALS: BP 174/94
--- NOTE | 2019-02-01 11:01 | NUR ---
PT RESTING IN BED ALERT XS 1-2. SET UP BREAKFAST ATE 100 %. NO PAIN OR RESP DISTRESS. RASCON CATH TO D/D WITH CLEAR URINE IN RASCON BAG. TOTAL CARE WITH ADLS.
[2019-02-01 14:31] VITALS: BP 121/74
--- NOTE | 2019-02-01 18:22 | NUR ---
PT HAD LARGE BROWN FORMED STOOL. COMPLETE BED CHANGE. SET UP DINNER AND PATIENT IS EATING AND DRINKING SUPPLEMENT.
[2019-02-01 19:35] VITALS: BP 145/84
--- NOTE | 2019-02-02 04:29 | NUR ---
ASSUMED CARE OF PT @1900. PT A&OX1. FORGETFUL AND PLEASANTLY CONFUSED. PT HAS BEEN INCONT WITH FREQUENT SMALL BM. CDIFF NEGATIVE. EXTERNAL MALE CATH CHANGED X3 OVERNIGHT. NEW 22G IV ON LEFT FOREARM. NO S/S OF DISTRESS. FALL PREC IN PLACE. WILL CONT TO MONITOR
[2019-02-02 07:35] VITALS: BP 153/99
[2019-02-02 09:41] VITALS: BP 111/74
[2019-02-02 14:59] VITALS: BP 129/81
--- NOTE | 2019-02-02 18:42 | NUR ---
ASSUMED CARE AT 0700.PT IS ALERT TO SELF BUT PLEASANTLY TO CONFUSED TO ALL OTHER ORIENTATION. PT HAS VERY GOOD APPETITE AND ATE 90-100% OF MEALS TODAY AND DRANK HIS SUPPLEMENT DRINK. PT WAS INCONTINENT OF STOOL TODAY WITH LARGE LIQUID STOOL. PT UNABLE TO TELL WHEN HE HAS BOWEL MOVEMENT SO PT NEEDS FREQUENT CHECKING. PT HAS EXTERNAL MALE CATHETER IN PLACE AND IS DRAINING ADEQUATE URINE OUTPUT. PT C/O PAIN AND WAS GIVEN PO PAIN MEDS ORDERED. PT REFUSED PHYSICAL THERAPY AFTER SHE WAS PREMEDICATED. PT HAD 1 EVENT OF INCONTINENCE OF URINE. PT DID NOT HAVE BM THIS SHIFT.
[2019-02-02 19:05] VITALS: BP 121/76
--- NOTE | 2019-02-02 19:29 | NUR ---
ASSUMED CARE ARE 0700. PT IS ALERT TO SELF BUT PLEASANTLY CONFUSED. PT TRAYS ARE SET UP IN FRONT OF HIM BUT PT IS ABLE TO FEED HIMSELF AFTER SETUP. PT ATE 90-100% OF MEALS TODAY AND DRANK 100% OF AM SUPPLEMENT SHAKE. PT WAS INCONTINENT OF BOWEL X1 WITH LARGE SEMI LIQUID STOOL. PT NEEDS FREQUENT ROUNDING HE DOES NOT CALL APPROPRIATLEY FOR ANYTHING. FALL PRECAUTIONS IN PLACE, BED ALARM ON.
--- NOTE | 2019-02-03 01:39 | NUR ---
patient aox1 confused and forgetful. patient encouraged fluids this shift. patient has discolorationon both feet, aquecel in between the toes, is c/d/i. patient was agitated at around 0150 prn seroquel given. patient turned q 2 hours. no s/s of pain or discomfort this shift. patient npo since [address] precaution in place. patient in bed asleep at this time breathing regular and unlaboured.
[2019-02-03 05:39] LABS: HEMATOCRIT 32.2 % (42.0-52.0); HEMOGLOBIN 10.5 gm/dL (14.0-18.0); MCH 27.4 pg (26.0-34.0); MCHC 32.6 g/dL (28.0-37.0); MCV 84.1 fL (80.0-100.0); RBC 3.83 mil/uL (4.50-6.00); RDW 17.9 % (10.5-14.5); WBC 7.9 thou/uL (4.0-11.0)
[2019-02-03 05:59] LABS: CALCIUM 9.5 mg/dL (8.5-10.1); CREATININE 1.4 mg/dL (0.7-1.3); POTASSIUM 4.1 mmol/L (3.5-5.1)
[2019-02-03 07:50] VITALS: BP 134/90
--- NOTE | 2019-02-03 14:37 | NUR ---
PT A&O TO SELF, VSS, NO APPARENT SIGNS OF PAIN. PATIENT HAS RESTED IN BED FOR THE MORNING WITHOUT IMPULSIVITY. PT INCONTINENT OF B&B, BRIELLE CARE GIVEN. WILL CONTINUE TO MONITOR.
[2019-02-03 17:50] VITALS: BP 179/96
[2019-02-03 19:32] VITALS: BP 167/83
[2019-02-04 00:12] VITALS: BP 148/95
[2019-02-04 01:12] VITALS: BP 142/74
[2019-02-04 02:12] VITALS: BP 131/84
--- NOTE | 2019-02-04 02:58 | NUR ---
PATIENT AOX1 CONFUSED AND FORGEFUL. PATIENT WAS AGITATED THIS SHIFT, CALLED ELECTRONIC LAB TECHNICIAN NEW ORDER OF HALDOL 1 MG X1. PATIENT INCONTIENT PERICARE AND BARRIER CREAM APPLIED NEEDED. PATIENT RIGHT MIDDLE TOE IS BLACK IN COLOR NO ODOR OR DRAINAGE. AQUECEL DRESSING IN BETWEEN PATIENT TOES ARE C/D/I. PATIENT ENCOURAGED FLUIDS.NO S/S OF PAIN OR DISCOMFORT. PATIENT IN BED ASLEEP AT THIS TIME BREATHING REGULAR AND UNLABOURED.
[2019-02-04 03:07] VITALS: BP 143/82
[2019-02-04 06:12] LABS: CALCIUM 9.7 mg/dL (8.5-10.1); CREATININE 1.4 mg/dL (0.7-1.3); POTASSIUM 4.2 mmol/L (3.5-5.1)
[2019-02-04 09:34] VITALS: BP 153/84
--- NOTE | 2019-02-04 11:09 | NUR ---
aimee sent updates to Neptali/Isaac, isaac sent message inquiring about patient, aimee called Isaac at [facility] and left message on vm, also told her that would send her updates today and to cb if she has any questions.
[2019-02-04] MEDS ORDERED: ASPIR 8181 MG PO (13:56)
[2019-02-04] MEDS ORDERED: CLOPIDOGREL75 MG PO (13:56)
[2019-02-04 15:02] VITALS: BP 133/69
--- NOTE | 2019-02-04 15:25 | NUR ---
patient to dc today to [facility] at 1600. amiee [facility]
--- NOTE | 2019-02-04 16:21 | NUR ---
CARE TEAM INDICATED THAT PT IS MEDICALLY STABLE TO DC HOME TO [facility] THIS DAY. PT IS TO DC SKILLED. CHART COPY ORDERED. ORDERS HAVE BEEN FAXED. REPORT IS TO BE CALLED TO . CM CALLED AND NOTIFIED T'S DTR SHE IS AWARE AND AGREEABLE. FREDDIE BENOIT ARRANGED FOR [phone]. NO OTHER CM INTERVENTION INDICATED. CASE CLOSED.
--- NOTE | 2019-02-04 20:35 | NUR ---
PT DISCHARGED TO [facility] APPROX 1630. PT A&O TO SELF, VSS, NO APPARENT PAIN. WOUND CARE AND PHOTO TAKEN. PT HAD PHYSICAL THERAPY TODAY AND WAS ABLE TO SIT IN RECLINER. CALLED [facility] TWICE, 1800 AND 1740 AND NO ONE ANSWERED FOR REPORT. PATIENT SENT VIA TRANSPORT IN HIS OWN PERSONAL WHEELCHAIR TO [facility]. DRESSING REMOVED FROM LEFT GROIN AND BAND-AID PLACED PER ORDERS. LEFT GROIN HAD NO DRAINAGE, DRESSING BEFORE REMOVAL C/D/I. LEFT GROIN SOFT AND FLAT. NO SIGNS OF DISTRESS, IV REMOVED. DISCHARGE PAPERWORK SENT WITH TRANSPORTER.
--- NOTE | 2019-02-06 12:21 | HC ---
[facility] [place] [address] CONSULTATION Name: KIMBERLYN GUILLEN Room #: 462-P [facility] IN M.R.#: [id number] Admission: 01/29/19 Attend Phys: Lane Jung MD Discharge: 02/04/19 Date of : 34 Report #: [id number] THIS REPORT FOR: //name// CC: Lane Darby DATE OF SERVICE: 01/30/2019 WOUND CARE CONSULTATION. HISTORY OF PRESENT ILLNESS: An 88-year-old male patient who was admitted from a longterm facility with progressive skin changes involving his right fourth toe. It apparently has been very painful and he has developed ulceration in the interdigital webspaces as well. I have been asked to see him with regard to wound care. The patient is not able to provide really much information about himself at all. He has a history of dementia. He has some history of peripheral vascular disease and underwent angiography in November of 2018 but there were a lot of motion issues that prevented a good look and it was mainly focused on the left side. PAST MEDICAL HISTORY: Positive history of rhabdomyolysis, hypertension, dementia, cerebrovascular accident, right hemiparesis, acute kidney injury, elevated BUN. ALLERGIES: None. SOCIAL HISTORY: The patient lives in a nursing care facility. MEDICATIONS: Include Colace, acetaminophen, divalproex, ascorbic acid, gentamicin, Haldol, Zosyn, fentanyl, ondansetron. REVIEW OF SYSTEMS: Unobtainable due to the patient's condition. PHYSICAL EXAMINATION: VITAL SIGNS: Include temperature 97.7, pulse 77, respiratory rate 16, blood pressure 135/73. GENERAL: This is a chronically ill-appearing male patient who appears to be mostly somnolent. HEENT: Head normocephalic. Nose and throat are clear. NECK: Supple. LUNGS: Diminished. HEART: Regular rhythm. ABDOMEN: Soft, bowel sounds are present. EXTREMITIES: Examination of the lower extremities demonstrates diminished and mostly nonpalpable distal pulses. He has some necrotic changes to the right fourth toe with ulceration in the interdigital web spaces between the [facility] and [address] [address] CONSULTATION Name: KIMBERLYN GUILLEN Room #: 462-P [facility] IN ..#: [id number] Admission: 01/29/19 Attend Phys: Lane Jung MD Discharge: 02/04/19 Date of : 32 Report #: [id number] 5th and 3rd and 4th toes of the right foot. The areas are very tender to palpation. A culture has been obtained. NEUROLOGIC: The patient is arousable. He appears to move symmetrically. LABORATORY DATA: Include sodium 148, potassium 4.1, chloride 110, CO2 of 27, BUN 36, creatinine 1.2, glucose 77, calcium is 9.2. The white blood cell count 8.8, hemoglobin of 11.1, hematocrit 34.5. Last albumin check was 4.1 in 10/2016. CLINICAL IMPRESSION: 1. Ischemic and necrotic right fourth toe. 2. Peripheral vascular disease by clinical exam. 3. Ulcerations to the right foot between the 3rd, 4th and 4th and 5th toes. RECOMMENDATIONS: At this point in time, we will obtain arterial Doppler studies. We will ask Interventional Radiology to review the previous angiography and decide whether the additional evaluation would be warranted for possible percutaneous intervention. I suspect he will need amputation of the 4th toe, but I am concerned that there may be significant issues with nonhealing that actually could result in a higher level amputation. We did obtain transcutaneous oxygen measurements in the above-knee region. Baseline tissue oxygen measurements were 23 in the medial leg; below the knee they were 16; below the knee laterally 33; right medial ankle 0 and right lateral ankle 9. Tissue oxygenation of at least 30 is required for spontaneous wound healing and 50 required for optimal wound healing. These numbers would predict nonhealing in the lower extremity without some other type of intervention. At this point in time, we will use Betadine paint to the ischemic toe itself and then use a silver alginate between the toes to help absorb any moisture that may occur there. I do not think any active debridement or surgical removal of the toe would be appropriate at this time. Additional decision making to be forthcoming following review with Interventional Radiology. I appreciate being asked to see him in consultation. We will follow closely. <ELECTRONICALLY SIGNED> By: Delano Stanford MD 02/06/19 1221 1811 0022 Delano Stanford MD /nt
== END 2019-02-04 16:36 | DRG 270 ==
LOC: ER 11:48 → 4W 16:00 → EROBS 16:00 → 4W 18:21
PROVIDERS: Emergency Medicine; Hospitalist; ADMIT Hospitalist
PROC: 04CP3ZZ Extirpation of Matter from Right Anterior Tibial Artery, Percutaneous Approach (ICD-10-PCS; principal; 2019-02-03)
PROC: 047P3ZZ Dilation of Right Anterior Tibial Artery, Percutaneous Approach (ICD-10-PCS; principal; 2019-02-03)
DX: I73.9 Peripheral vascular disease, unspecified (principal); N17.0 Acute kidney failure with tubular necrosis; N17.9 Acute kidney failure, unspecified; E87.1 Hypo-osmolality and hyponatremia; I10 Essential (primary) hypertension; I25.10 Atherosclerotic heart disease of native coronary artery without angina pectoris; F03.90 Unspecified dementia, unspecified severity, without behavioral disturbance, psychotic disturbance, mood disturbance, and anxiety; K21.9 Gastro-esophageal reflux disease without esophagitis; E86.0 Dehydration; K59.00 Constipation, unspecified; Z79.899 Other long term (current) drug therapy; Z79.1 Long term (current) use of non-steroidal anti-inflammatories (NSAID)
CPT/HCPCS: 10040; 50010; 62110; 62900